=== PATIENT | female | born 2000 | race Caucasian/White ===

== ENCOUNTER 2020-03-20 14:13 | Outpatient (CLI) | payer OTHER, SELFPAY ==
--- NOTE | ~2020-03-20 | CT_ITS ---
EXAMINATION: CT sinus wo con DATE: 03/20/2020 14:29 INDICATION: Chronic sinusitis, unspecified TECHNIQUE: Computed tomography (CT) of the paranasal sinuses was performed without intravenous contra st. The dose-length product (DLP) was 282.50 mGy-cm. Iterative reconstruction was used. COMPARISON: None FINDINGS: The frontal sinuses are not pneumatized. There is otherwise normal development and pneumati zation of the paranasal sinuses. There is mild mucosal thickening of the ethmoidal air cells and infe rior aspects of the maxillary sinuses. The sphenoid sinuses are clear. The bilateral ostiomeatal comp lexes are patent. Visualized soft tissues are unremarkable. IMPRESSION: 1. Mild mucosal thickening of the ethmoidal air cells and maxillary sinuses. Reviewed, dictated and finalized at location A.
== END 2020-03-20 14:14 | disposition home or self-care (01) ==
LOC: ANHIMG 14:17
PROVIDERS: PCP Nurse Practitioner Psychiatric/Mental Health; Visit Provider Otolaryngology
DX: J32.9 Chronic sinusitis, unspecified (principal)
CPT/HCPCS: 70486

== ENCOUNTER → 2021-09-08 07:36 | Outpatient (CLI) | payer OTHER, SELFPAY ==
--- NOTE | ~2021-09-08 | MR_ITS ---
EXAMINATION: MR ankle RT wo con DATE: 09/08/2021 08:32 INDICATION: Right ankle pain TECHNIQUE: Magnetic resonance imaging (MRI) of the right ankle was performed without intravenous cont rast. Sequences included sagittal, coronal, and axial proton-density weighted fast spin echo without and with fat saturation. COMPARISON: None. FINDINGS: Medial ankle ligaments: Deep and superficial deltoid ligaments as well as the spring ligament are normal. Lateral ankle ligaments: The anterior and posterior inferior tibiofibular ligaments are normal. The anterior talofibular, calc aneofibular and posterior talofibular ligaments are normal. Tendons: Achilles tendon is normal. The peroneus longus and brevis tendons are normal. The tibialis anterior a nd extensor hallucis longus and extensor digitorum longus tendons are normal. The tibialis posterior, flexor digitorum longus and flexor hallucis longus tendons are normal. Plantar fascia: Plantar aponeurosis is normal. Bones/other: Edema-like marrow signal surrounding tiny cystlike changes at the posterior medial rim of the talar d ome. Fluid: Small right ankle joint effusion. Physiologic amount fluid in the remaining joint spaces of the mid a nd hindfoot. No tenosynovitis, bursitis or other abnormal fluid collections. IMPRESSION: 1. Increased T2 marrow signal along the posterior medial rim of the talar dome which could be due to posthepatic bone contusion or reactive edema related to overlying chondromalacia. 2. Likely reactive small right knee joint effusion. Reviewed, dictated and finalized at location A. TYPER IMPRESSION: 1. Increased T2 marrow signal along the posterior medial rim of the talar dome which could be due to posthepatic bone contusion or reactive edema related to o verlying chondromalacia. 2. Likely reactive small right knee joint effusion.
== END ==
PROVIDERS: PCP Nurse Practitioner Psychiatric/Mental Health; Visit Provider Orthopaedic Surgery
DX: M25.571 Pain in right ankle and joints of right foot (principal); M95.8 Other specified acquired deformities of musculoskeletal system
CPT/HCPCS: 73721